=== PATIENT | male | born 1970 | race Two or more races ===

== ENCOUNTER 2025-02-02 08:50 | Outpatient (AMB) | payer MEDICAID, SELFPAY ==
--- NOTE | 2025-02-02 09:12 | ORTHONT_ITS ---
Vital signs 02/02/25 09:14 Height 1.7 m Height Method Stated Weight 97.721 kg Weight Measurement Method Standing Scale BMI 33.7 BP 120/80 Blood Pressure Source Automatic Cuff Blood Pressure Location Left Upper Arm Position Sitting Respiration 18 Pulse 59 L Pulse Source Monitor Temp 97.8 F Temp Source Temporal Artery Scan Pulse Oximetry (%) 96 Oxygen Delivery Method Room Air Med/Allergies Allergies & Medications Allergies No Known Allergies Allergy (Verified 02/02/25 09:15) Medication Reconciliation meloxicam 7.5 mg tablet 7.5 mg PO QDAY #45 tabs 02/02/25 [Rx] Exam Exam Breathing is nonlabored. Patient has a normal mood and affect. Bilateral extremities were evaluated and demonstrates sensation intact to light touch. Palpable pedal pulses are present. No significant edema is present. Bilateral hips were examined. The patient has no pain with log roll of the hips. Internal rotation to 30 degrees and external rotation to 30 degrees is painless. Negative FADIR. Left knee was examined today. The left knee is in reasonable alignment. Range of motion from 0-120 degrees. Knee is stable to varus and valgus as well as AP translation with <5mm. Patient has a negative McMurrays. There is no pain with patellofemoral compression and no crepitus noted. The knee is nontender to palpation. The right knee was also examined. The right knee is in varus alignment. Range of motion from 0-115 degrees. Knee is stable to varus and valgus as well as AP translation with <5mm. Patient has a negative McMurrays. There is no pain with patellofemoral compression and no crepitus noted. The knee is tender to palpation medially. Assessment and Plan Problem List (1) Arthritis of both knees: Status: Acute Plan: Patient is a 54-year-old male with bilateral knee arthritis of unknown severity. We will get x-rays to better evaluate the severity. He reports the pain is significant and is affecting his quality life and happiness. He does have a very difficult job. 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) MA Intake Visit Data Collection New Patient or Established: New Patient (never been to [facility]) Reason for Visit:: OSTEOARTHRITIS BILATERAL KNEE PAIN R>L Seen by Clinical Staff ONLY (RN/MA): No PCP or OBGYN visit in last 3 months: Yes Hx Now: No Do You Feel Safe at Home: Yes Authorities Contacted: N/A Questionairres Past Medical History Past Medical History Have you ever been diagnosed with any of the following: Respiratory Problems Smoking: No Smoking Exposure: No Subjective Visit Visit for: new patient and knee Immunization / Flu Flu Vaccine in the Last 12 Months: No Flu Vaccine Exclusion Criteria: No Exclusion Criteria History of Present Illness Chief complaint: Right knee pain Date of injury / onset of symptoms: 5 YEARS Memo is a 54-year-old male with a right greater than left knee pain that has been ongoing for several years he has been getting injections in the past and has had over 5 injections. He is also tried formal physical therapy. He has not tried any anti-inflammatories. 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
[2025-02-02 09:14] VITALS: BP 120/80; PULSE 59; RESP 18; TEMP 36.6; O2SAT 96; BMI 33.7
--- NOTE | 2025-02-02 09:15 | XR_ITS ---
Examination: Bilateral knees 2 views Right lateral knee left lateral knee 2 views Axial knees bilateral single view TECHNIQUE: Bilateral AP knees standing single view, bilateral PA knees standing single view flexion Standing right lateral knee left lateral knee 2 views Bilateral axial knees single view total 5 views Date and time: February 02, 2025 0949 hours INDICATIONS: Bilateral knee pain several years. FINDINGS: Severe narrowing [id number] medial joint space right knee Advanced osteoarthritis right patellofemoral joint Mild to moderate narrowing medial lateral joint spaces left knee Moderate osteoarthritis left patellofemoral joint IMPRESSION: Bilateral osteoarthritis as above, most prominent severe narrowing [id number] medial joint space right knee
== END 2025-02-02 09:18 | disposition home or self-care (01) ==
LOC: HODSRG 08:50
PROVIDERS: PCP Family Medicine; Referring Provider Family Medicine; Supervising Provider Orthopaedic Surgery Adult Reconstructive Orthopaedic Surgery; Visit Provider Orthopaedic Surgery Adult Reconstructive Orthopaedic Surgery
DX: M17.0 Bilateral primary osteoarthritis of knee (principal); M25.562 Pain in left knee; M25.561 Pain in right knee
CPT/HCPCS: 73564; 99204; G0463

== ENCOUNTER 2025-02-11 12:56 | Outpatient (AMB) | payer MEDICAID, SELFPAY ==
--- NOTE | 2025-02-11 13:24 | PD.ORTHCLVIS ---
Vital signs 02/11/25 13:25 Height 1.7 m Height Method Stated Weight 98.231 kg Weight Measurement Method Standing Scale BMI 34.0 BP 129/83 Blood Pressure Source Automatic Cuff Blood Pressure Location Left Upper Arm Position Sitting Respiration 19 Pulse 57 L Pulse Source Monitor Temp 97.9 F Temp Source Temporal Artery Scan Pulse Oximetry (%) 95 Oxygen Delivery Method Room Air Med/Allergies Allergies & Medications Allergies No Known Allergies Allergy (Verified 02/11/25 13:25) Medication Reconciliation meloxicam 7.5 mg tablet 7.5 mg PO QDAY #45 tabs 02/02/25 [Rx Confirmed 02/11/25] Exam Exam Breathing is nonlabored. Patient has a normal mood and affect. Bilateral extremities were evaluated and demonstrates sensation intact to light touch. Palpable pedal pulses are present. No significant edema is present. Bilateral hips were examined. The patient has no pain with log roll of the hips. Internal rotation to 30 degrees and external rotation to 30 degrees is painless. Negative FADIR. Left knee was examined today. The left knee is in reasonable alignment. Range of motion from 0-120 degrees. Knee is stable to varus and valgus as well as AP translation with <5mm. Patient has a negative McMurrays. There is no pain with patellofemoral compression and no crepitus noted. The knee is nontender to palpation. The right knee was also examined. The right knee is in varus alignment. Range of motion from 0-115 degrees. Knee is stable to varus and valgus as well as AP translation with <5mm. Patient has a negative McMurrays. There is no pain with patellofemoral compression and no crepitus noted. The knee is tender to palpation medially. X-ray of the right knee demonstrates complete joint space narrowing and varus arthritis Assessment and Plan Problem List (1) Arthritis of both knees: Status: Acute Plan: Patient is a 54-year-old male with bilateral knee arthritis of unknown severity. X-rays demonstrate significant arthritis of the right knee that is [id number]. We discussed nonoperative and operative options. At this point in time he is considering surgery. 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 He does not want a cortisone injection today. We will see him in approximately 3 to 4 months We discussed that given his [id number] arthritis stairs and climbing ladders may not be a great idea at this time. Office Procedures GNS Level of Care Nursing/Assessment Patient Status: Established Patient Nursing Assessment/Reassesment: Medication Reconciliation, Update PMH in EMR and Vital Signs Coordination of Care: Complex Care and Chronic Disease 1-5, Education Complex Pt/Fam, Consent,records obtained, informed consent, Results/Orders obtained and Staff clarify orders Established Patient Charge Established Patient Point Assignment: 95 Established Patient Point Charge: EP Level 3 (80-115) MA Intake Visit Data Collection New Patient or Established: Established Patient (seen at [facility] within 3 years) Reason for Visit:: FOLLOW UP XRAYS Seen by Clinical Staff ONLY (RN/MA): No PCP or OBGYN visit in last 3 months: Yes Hx Now: No Do You Feel Safe at Home: Yes Authorities Contacted: N/A Questionairres Past Medical History Past Medical History Have you ever been diagnosed with any of the following: Respiratory Problems Smoking: No Smoking Exposure: No Subjective Visit Visit for: follow up visit and x-rays Immunization / Flu Flu Vaccine in the Last 12 Months: No Flu Vaccine Exclusion Criteria: No Exclusion Criteria History of Present Illness Chief complaint: Right knee pain Date of injury / onset of symptoms: 5 YEARS Memo is a 54-year-old male with a right greater than left knee pain that has been ongoing for several years he has been getting injections in the past and has had over 5 injections. He is also tried formal physical therapy. He has not tried any anti-inflammatories. 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
[2025-02-11 13:25] VITALS: BP 129/83; PULSE 57; RESP 19; TEMP 36.6; O2SAT 95; BMI 34.0
== END 2025-02-11 13:34 | disposition home or self-care (01) ==
LOC: HODSRG 12:56
PROVIDERS: PCP Family Medicine; Referring Provider Family Medicine; Supervising Provider Orthopaedic Surgery Adult Reconstructive Orthopaedic Surgery; Visit Provider Orthopaedic Surgery Adult Reconstructive Orthopaedic Surgery
DX: M17.0 Bilateral primary osteoarthritis of knee (principal); M25.562 Pain in left knee
CPT/HCPCS: 99213; G0463